=== PATIENT | male | born 2000 | race Caucasian/White ===

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

== ENCOUNTER 2020-01-29 10:41 | Emergency (ER) | payer MEDICAID ==
[~2020-01-29] VITALS: Ht 172.7 cm; Wt 95.5 kg
[2020-01-29] MEDS ORDERED: IBUPROFEN 400 MG TABLET PO ONE (11:45)
[2020-01-29] MEDS ORDERED: ACETAMINOPHEN 325 MG TABLET PO ONE (11:45)
[2020-01-29 13:34] VITALS: BP 124/77
== END 2020-01-29 13:42 | disposition home or self-care (01) ==
LOC: EMS 10:45
DX: B34.9 Viral infection, unspecified (principal); F17.210 Nicotine dependence, cigarettes, uncomplicated; F12.90 Cannabis use, unspecified, uncomplicated